=== PATIENT | female | born 1995 | race Two or more races ===

== ENCOUNTER 2017-05-06 15:30 | Emergency (ER) | payer MEDICAID ==
[2017-05-06 15:52] VITALS: BP 132/81; PULSE 108; RESP 18; TEMP 100; O2SAT 98
[2017-05-06] MEDS ORDERED: OSELTAMIVIR PHOSPHATE 75 MG CAP PO ONE (15:52)
--- NOTE | 2017-05-06 15:54 | EDPHY ---
H & P Stated Complaint: BODY ACHES Time Seen by Provider: 05/06/17 15:48 HPI/ROS: CHIEF COMPLAINT: Body aches, sore throat HISTORY OF PRESENT ILLNESS: The patient is a 22-year-old female who comes to the emergency department complaining of body aches, chills and a sore throat. She does have minor sinus congestion . No coughing or shortness of breath. No nausea vomiting or diarrhea. No headache or neck pain. REVIEW OF SYSTEMS: Constitutional: See HPI EENTM: denies: blurred vision, double vision, nose congestion Respiratory: denies: cough, shortness of breath Cardiac: denies: chest pain, irregular heart rate, lightheadedness, palpitations Gastrointestinal/Abdominal: denies: abdominal pain, diarrhea, nausea, vomiting, blood streaked stools Genitourinary: denies: dysuria, frequency, hematuria, pain Musculoskeletal: See HPI Skin: denies: lesions, rash, jaundice, bruising Neurological: denies: headache, numbness, paresthesia, tingling, dizziness, weakness Hematologic/Lymphatic: denies: blood clots, easy bleeding, easy bruising Immunologic/allergic: denies: HIV/AIDS, transplant EXAM: GENERAL: Well-appearing, well-nourished and in no acute distress. HEAD: Atraumatic, normocephalic. EYES: Pupils equal round and reactive to light, extraocular movements intact, sclera anicteric, conjunctiva are normal. ENT: TMs normal, nares patent, oropharynx clear without exudates. Moist mucous membranes. NECK: Normal range of motion, supple without lymphadenopathy or JVD. LUNGS: Breath sounds clear to auscultation bilaterally and equal. No wheezes rales or rhonchi. HEART: Regular rate and rhythm without murmurs, rubs or gallops. ABDOMEN: Soft, nontender, normoactive bowel sounds. No guarding, no rebound. No masses appreciated. BACK: No CVA tenderness, no spinal tenderness, step-offs or deformities EXTREMITIES: Normal range of motion, no pitting or edema. No clubbing or cyanosis. NEUROLOGICAL: Cranial nerves II through XII grossly intact. Normal speech, normal gait. 5/5 strength, normal movement in all extremities, normal sensation PSYCH: Normal mood, normal affect. SKIN: Warm, dry, normal turgor, no visible rashes or lesions. Source: Patient Exam Limitations: No limitations - Personal History LMP (Females 10-55): Unknown Current Tetanus Diphtheria and Acellular Pertussis (TDAP): Yes - Medical/Surgical History Hx Asthma: No Hx Chronic Respiratory Disease: No Hx Diabetes: No Hx Cardiac Disease: No Hx Renal Disease: No Hx Cirrhosis: No Hx Alcoholism: No Hx HIV/AIDS: No Hx Splenectomy or Spleen Trauma: No Other PMH: TONSILECTOMY - Family History Significant Family History: No pertinent family hx - Social History Smoking Status: Never smoked Alcohol Use: Sober Constitutional: Initial Vital Signs Temperature (C) 37.8 C 05/06/17 15:50 Heart Rate 108 H 05/06/17 15:50 Respiratory Rate 18 05/06/17 15:50 Blood Pressure 132/81 H 05/06/17 15:50 O2 Sat (%) 98 05/06/17 15:50 O2 Delivery Mode Room Air Allergies/Adverse Reactions: No Known Allergies Allergy (Verified 02/26/12 17:05) Home Medications: Medication Instructions Recorded NK [No Known Home Meds] 11/10/13 Oseltamivir Phosphate [Tamiflu 75 75 mg PO BID #10 cap 05/06/17 mg (*)] Medical Decision Making ED Course/Re-evaluation: The patient's exam is unremarkable however she has symptoms consistent with influenza. Influenza is ubiquitous currently in this community. I will start her on Tamiflu. She agrees with this plan and declines testing. Differential Diagnosis: Partial list of the Differential diagnosis considered include but were not limited to; influenza, viral syndrome, strep throat and although unlikely based on the history and physical exam, I also considered meningitis, sepsis, pneumonia, urinary tract infection. I discussed these differential diagnoses and the plan with the patient as well as the usual and expected course. The patient understands that the diagnosis is provisional and that in medicine we are not always correct and that further workup is often warranted. Usual and customary warnings were given. All of the patient's questions were answered. The patient was instructed to return to the emergency department should the symptoms at all worsen or return, otherwise to followup with the physician as we discussed. - Data Points Medications Given: Discontinued Medications Oseltamivir Phosphate (Tamiflu) 75 mg PO EDNOW ONE Stop: 05/06/17 15:53 Last Admin: 01/22/18 16:06 Dose: 75 mg Departure - Departure Disposition: Home, Routine, Self-Care Clinical Impression: Influenza Condition: Good Instructions: Influenza (ED) Referrals: NONE *PRIMARY CARE P,. [Primary Care Provider] - As per Instructions Prescriptions: Oseltamivir Phosphate [Tamiflu 75 mg (*)] 75 mg PO BID #10 cap
== END 2017-05-06 16:07 | disposition home or self-care (01) ==
LOC: CED 15:30
DX: J11.1 Influenza due to unidentified influenza virus with other respiratory manifestations (principal)